=== PATIENT | male | born 1990 | race Caucasian/White ===

== ENCOUNTER 2017-12-19 21:34 | Emergency (ER) | payer OTHER ==
[~2017-12-19] VITALS: Ht 177.8 cm; Wt 90.9 kg
[2017-12-19 21:40] VITALS: TEMP 98.9
[2017-12-20] MEDS ORDERED: NORCO 325 MG-51 TAB PO (01:28)
[2017-12-20 01:50] VITALS: BP 128/78; PULSE 84
== END 2017-12-20 01:15 | disposition home or self-care (01) ==
LOC: COL.ER 21:34
DX: S43.004A Unspecified dislocation of right shoulder joint, initial encounter (principal); S09.90XA Unspecified injury of head, initial encounter; S60.511A Abrasion of right hand, initial encounter; S80.211A Abrasion, right knee, initial encounter; F17.210 Nicotine dependence, cigarettes, uncomplicated; F12.90 Cannabis use, unspecified, uncomplicated; V19.9XXA Pedal cyclist (driver) (passenger) injured in unspecified traffic accident, initial encounter; Y92.410 Unspecified street and highway as the place of occurrence of the external cause
CPT/HCPCS: J2250; J3010; J7030